=== PATIENT | female | born 1950 | race Caucasian/White ===

== ENCOUNTER 2022-02-23 17:54 | Inpatient (IN) | payer OTHER ==
[~2022-02-23] VITALS: Ht 170.2 cm; Wt 66.4 kg
[2022-02-23] MEDS ORDERED: methylPREDNISolone SOD SUCC 125 MG/2 ML VL IV ONE (18:30)
[2022-02-23] MEDS ORDERED: ALBUTEROL SULF 2.5 MG/0.5ML(0.5%) NEB SOLN HHN ONE (19:00)
[2022-02-23] MEDS ORDERED: IPRATROPIUM BROM 0.5 MG/2.5ML INH SOL HHN ONE (19:00)
[2022-02-23 19:10] LABS: Basophils # (auto) 0 10 ^3/uL (0-0.2); Eosinophils # (auto) 0 10 ^3/uL (0-0.8); Monocytes # (auto) 0.5 10 ^3/uL (0-1.3)
[2022-02-23 19:14] LABS: Basophils % (auto) 0.3 % (0.0-2.0); Eosinophils % (auto) 0.8 % (0.0-7.0); Hematocrit 50.9 % (36.0-46.0); Hemoglobin 16.7 g/dL (12.2-16.2); Lymphocytes # (auto) 0.8 10 ^3/uL (0.4-5.4); Lymphocytes % (auto) 17.5 % (10.0-50.0); Mean Corpuscular Hemoglobin 37.2 pg (28.0-32.0); Mean Corpuscular Hgb Conc. 32.9 g/dL (32.0-36.0); Neutrophils % (auto) 69.4 % (37.0-80.0); Nucleated Red Blood Cells % 0.2 %; Red Cell Distribution Width 17.5 % (11.8-14.3); White Blood Cell 4.4 10^3/uL (4.4-10.8)
[2022-02-23 19:25] LABS: Albumin 3.7 g/dL (3.4-5.0); BUN/Creatinine Ratio 42.2; Calcium 8.7 mg/dL (8.5-10.1); Magnesium 2.3 mg/dL (1.6-2.6); Potassium 4.4 mmol/L (3.5-5.1)
[2022-02-23 19:27] LABS: Bilirubin, Total 0.9 mg/dL (0.2-1.0); Total Protein 7.1 g/dL (6.4-8.2)
[2022-02-23 19:30] LABS: Lactic Acid w/Reflex 2.7 mmol/L (0.4-2.0)
[2022-02-23] MEDS ORDERED: cefTRIAXone 1GM/50ML D5W 50 ML IV ONE (19:45)
[2022-02-23] MEDS ORDERED: AZITHROMYCIN 500MG/ 250ML 250 ML IV ONE (19:45)
[2022-02-23] MEDS ORDERED: OXYCODONE W/ ACETAMINOPHEN 5/325MG TABLET PO ONE (21:15)
[2022-02-23] MEDS ORDERED: IOHEXOL 350 MG/ML 100ML IJ ONE (22:20)
[2022-02-24] MEDS ORDERED: ACETAMINOPHEN 325 MG TAB PO PRN (00:45)
[2022-02-24 01:33] VITALS: BP 188/111
[2022-02-24] MEDS: ONDANSETRON HCL 4 MG/2 ML VIAL IV PRN (02:11)
[2022-02-24] MEDS: MORPHINE SULFATE INJ 2 MG/ml SYRG IV PRN ×3 (02:12→23:00)
[2022-02-24] MEDS: IPRATROPIUM BROM 0.5 MG/2.5ML INH SOL NEB SCH ×4 (05:27→23:02)
[2022-02-24] MEDS: methylPREDNISolone SOD SUCC 40 MG/ML VL IV SCH ×3 (06:28→22:08)
[2022-02-24] MEDS: ASPirin-EC 81 mg tab PO SCH (10:00)
[2022-02-24] MEDS: FAMOTIDINE 20 MG TAB PO SCH (10:00)
[2022-02-24] MEDS: FUROSEMIDE 40 MG/4 ML VIAL IV SCH ×2 (10:00→22:09)
[2022-02-24 13:00] VITALS: BP 147/93
[2022-02-24 13:20] VITALS: BP 141/84
[2022-02-24] MEDS ORDERED: OXYC325T14 PO (13:21)
[2022-02-24] MEDS ORDERED: FAMO-12 PO (13:21)
[2022-02-24] MEDS ORDERED: ALBU2TAB4 INH (13:21)
[2022-02-24] MEDS ORDERED: TRI05TP TOP (13:21)
[2022-02-24] MEDS ORDERED: SPIR25TA8 PO (13:21)
[2022-02-24] MEDS ORDERED: PANT1INJ3 PO (13:21)
[2022-02-24] MEDS ORDERED: TIOT17SP IN (13:22)
[2022-02-24] MEDS: HYDROcodone-ACET 5/325MG TAB PO PRN (14:44)
[2022-02-24 17:01] VITALS: BP 131/97
[2022-02-24] MEDS: ENOXAPARIN SOD 40 MG/0.4 ML SYRINGE SC SCH (17:40)
[2022-02-24 22:00] VITALS: BP 123/89
[2022-02-24] MEDS ORDERED: AZITHROMYCIN 500MG/ 250ML 250 ML IV SCH (22:00)
[2022-02-24] MEDS: cefTRIAXone 1GM/50ML D5W 50 ML IV SCH (22:07)
[2022-02-24] MEDS: ATORVASTATIN 20 MG TAB PO SCH (22:10)
[2022-02-25] MEDS: HYDROcodone-ACET 5/325MG TAB PO PRN ×2 (04:56→09:52)
[2022-02-25 05:00] VITALS: BP 143/83
[2022-02-25 05:26] LABS: Basophils # (auto) 0 10 ^3/uL (0-0.2); Basophils % (auto) 0.1 % (0.0-2.0); Eosinophils # (auto) 0 10 ^3/uL (0-0.8); Hematocrit 48.6 % (36.0-46.0); Lymphocytes # (auto) 0.3 10 ^3/uL (0.4-5.4); Monocytes # (auto) 0.3 10 ^3/uL (0-1.3); Nucleated Red Blood Cells % 0.1 %
[2022-02-25 05:28] LABS: Hemoglobin 16.1 g/dL (12.2-16.2); Lymphocytes % (auto) 7.2 % (10.0-50.0); Mean Corpuscular Hemoglobin 37.9 pg (28.0-32.0); Mean Corpuscular Hgb Conc. 33.1 g/dL (32.0-36.0); Mean Corpuscular Volume 114.2 fL (80.0-100.0); Monocytes % (auto) 8.2 % (0.0-12.0); Neutrophils # (auto) 2.9 10 ^3/uL (1.6-8.6); Neutrophils % (auto) 84.5 % (37.0-80.0); Red Blood Cells 4.26 10^6/uL (4.0-5.20); Red Cell Distribution Width 17.3 % (11.8-14.3); White Blood Cell 3.4 10^3/uL (4.4-10.8)
[2022-02-25] MEDS: methylPREDNISolone SOD SUCC 40 MG/ML VL IV SCH ×3 (05:44→22:09)
[2022-02-25 06:01] LABS: Calcium 8.9 mg/dL (8.5-10.1); Potassium 3.3 mmol/L (3.5-5.1)
[2022-02-25 06:07] LABS: BUN/Creatinine Ratio 56.3
[2022-02-25] MEDS: IPRATROPIUM BROM 0.5 MG/2.5ML INH SOL NEB SCH ×4 (07:11→22:16)
[2022-02-25 08:11] VITALS: BP 149/87
[2022-02-25] MEDS: ASPirin-EC 81 mg tab PO SCH (09:42)
[2022-02-25] MEDS: FAMOTIDINE 20 MG TAB PO SCH (09:42)
[2022-02-25] MEDS: ENOXAPARIN SOD 40 MG/0.4 ML SYRINGE SC SCH (09:42)
[2022-02-25] MEDS ORDERED: FUROSEMIDE 40 MG TAB PO SCH ×2 (10:00→18:00)
[2022-02-25 11:40] VITALS: BP 155/94
[2022-02-25] MEDS: Ensure HIGH Protein Chocolate 8oz Bottle PO SCH ×2 (12:00→17:52)
[2022-02-25] MEDS: OXYCODONE W/ ACETAMINOPHEN 5/325MG TABLET PO PRN ×2 (13:36→17:56)
[2022-02-25 17:00] VITALS: BP 152/81
[2022-02-25] MEDS: FUROSEMIDE 40 MG TAB PO SCH (17:57)
[2022-02-25] MEDS: ALBUTEROL SULF 2.5 MG/0.5ML(0.5%) NEB SOLN NEB SCH ×2 (18:51→22:15)
[2022-02-25] MEDS: BUDESONIDE (INHALATION) 0.5 MG/2 ML NEB NEB SCH (18:51)
[2022-02-25 22:00] VITALS: BP 126/69
[2022-02-25] MEDS ORDERED: POTASSIUM CHL 20 Meq TABLET PO ONE (22:00)
[2022-02-25] MEDS: cefTRIAXone 1GM/50ML D5W 50 ML IV SCH (22:09)
[2022-02-25] MEDS: ATORVASTATIN 20 MG TAB PO SCH (22:09)
[2022-02-25] MEDS: AZITHROMYCIN 250 MG TAB PO SCH (22:12)
[2022-02-26] VITALS (7 sets, daily range): BP systolic 130–144; BP diastolic 74–89
[2022-02-26] MEDS: OXYCODONE W/ ACETAMINOPHEN 5/325MG TABLET PO PRN ×3 (00:25→17:48)
[2022-02-26] MEDS: IPRATROPIUM BROM 0.5 MG/2.5ML INH SOL NEB SCH ×6 (01:56→22:34)
[2022-02-26] MEDS: ALBUTEROL SULF 2.5 MG/0.5ML(0.5%) NEB SOLN NEB SCH ×6 (01:56→22:34)
[2022-02-26] MEDS: methylPREDNISolone SOD SUCC 40 MG/ML VL IV SCH ×3 (05:41→21:16)
[2022-02-26] MEDS: FUROSEMIDE 40 MG TAB PO SCH ×2 (05:42→17:38)
[2022-02-26] MEDS: BUDESONIDE (INHALATION) 0.5 MG/2 ML NEB NEB SCH ×2 (06:52→22:35)
[2022-02-26 07:06] LABS: Potassium 3.6 mmol/L (3.5-5.1)
[2022-02-26 07:08] LABS: BUN/Creatinine Ratio 58.8
[2022-02-26 07:09] LABS: Basophils # (auto) 0 10 ^3/uL (0-0.2); Eosinophils # (auto) 0 10 ^3/uL (0-0.8); Lymphocytes # (auto) 0.2 10 ^3/uL (0.4-5.4); Mean Corpuscular Hgb Conc. 34.7 g/dL (32.0-36.0); Red Blood Cells 4.23 10^6/uL (4.0-5.20)
[2022-02-26 07:12] LABS: Hematocrit 47.7 % (36.0-46.0); Hemoglobin 16.5 g/dL (12.2-16.2); Lymphocytes % (auto) 5.1 % (10.0-50.0); Mean Corpuscular Hemoglobin 39.1 pg (28.0-32.0); Mean Corpuscular Volume 112.6 fL (80.0-100.0); Monocytes # (auto) 0.4 10 ^3/uL (0-1.3); Monocytes % (auto) 8.8 % (0.0-12.0); Neutrophils # (auto) 3.5 10 ^3/uL (1.6-8.6); Neutrophils % (auto) 86.1 % (37.0-80.0); Nucleated Red Blood Cells % 0.4 %; Red Cell Distribution Width 16.6 % (11.8-14.3)
[2022-02-26] MEDS: Ensure HIGH Protein Chocolate 8oz Bottle PO SCH ×3 (08:50→18:03)
[2022-02-26 09:36] LABS: Folate (Folic Acid) 10.38 ng/mL (5.38-24)
[2022-02-26] MEDS: PANTOPRAZOLE 40 MG TAB PO SCH (09:59)
[2022-02-26] MEDS: ASPirin-EC 81 mg tab PO SCH (09:59)
[2022-02-26] MEDS: ALPRAZolam 0.25 MG TAB PO PRN ×2 (09:59→21:36)
[2022-02-26] MEDS: AZITHROMYCIN 250 MG TAB PO SCH (09:59)
[2022-02-26] MEDS: ENOXAPARIN SOD 40 MG/0.4 ML SYRINGE SC SCH (10:00)
[2022-02-26] MEDS: cefTRIAXone 1GM/50ML D5W 50 ML IV SCH (21:10)
[2022-02-26] MEDS: ATORVASTATIN 20 MG TAB PO SCH (21:10)
[2022-02-27] MEDS: ALBUTEROL SULF 2.5 MG/0.5ML(0.5%) NEB SOLN NEB SCH ×6 (01:56→22:22)
[2022-02-27] MEDS: IPRATROPIUM BROM 0.5 MG/2.5ML INH SOL NEB SCH ×6 (01:56→22:22)
[2022-02-27] MEDS: OXYCODONE W/ ACETAMINOPHEN 5/325MG TABLET PO PRN ×4 (02:18→20:07)
[2022-02-27 05:00] VITALS: BP 140/90
[2022-02-27 05:05] LABS: Basophils # (auto) 0 10 ^3/uL (0-0.2); Basophils % (auto) 0.2 % (0.0-2.0); Eosinophils # (auto) 0 10 ^3/uL (0-0.8); Lymphocytes # (auto) 0.2 10 ^3/uL (0.4-5.4); Monocytes # (auto) 0.3 10 ^3/uL (0-1.3); Neutrophils # (auto) 2.7 10 ^3/uL (1.6-8.6); Nucleated Red Blood Cells % 0.1 %; Red Cell Distribution Width 16.8 % (11.8-14.3); White Blood Cell 3.2 10^3/uL (4.4-10.8)
[2022-02-27 05:07] LABS: Hemoglobin 16.6 g/dL (12.2-16.2); Lymphocytes % (auto) 4.9 % (10.0-50.0); Mean Corpuscular Hemoglobin 37.4 pg (28.0-32.0); Mean Corpuscular Hgb Conc. 33.1 g/dL (32.0-36.0); Monocytes % (auto) 9.9 % (0.0-12.0); Red Blood Cells 4.42 10^6/uL (4.0-5.20)
[2022-02-27 05:26] LABS: BUN/Creatinine Ratio 53.6; Calcium 9.1 mg/dL (8.5-10.1); Potassium 3.1 mmol/L (3.5-5.1)
[2022-02-27] MEDS: methylPREDNISolone SOD SUCC 40 MG/ML VL IV SCH ×3 (05:29→21:03)
[2022-02-27] MEDS: FUROSEMIDE 40 MG TAB PO SCH ×2 (05:30→17:42)
[2022-02-27] MEDS: BUDESONIDE (INHALATION) 0.5 MG/2 ML NEB NEB SCH ×2 (05:58→22:22)
[2022-02-27] MEDS ORDERED: POTASSIUM CHL 20 Meq TABLET PO ONE (07:00)
[2022-02-27] MEDS: ENOXAPARIN SOD 40 MG/0.4 ML SYRINGE SC SCH (07:55)
[2022-02-27] MEDS: AZITHROMYCIN 250 MG TAB PO SCH (07:56)
[2022-02-27] MEDS: PANTOPRAZOLE 40 MG TAB PO SCH (07:56)
[2022-02-27] MEDS: ASPirin-EC 81 mg tab PO SCH (07:56)
[2022-02-27 09:00] VITALS: BP 155/93
[2022-02-27] MEDS: Ensure HIGH Protein Chocolate 8oz Bottle PO SCH ×3 (09:44→18:18)
[2022-02-27] MEDS: ALPRAZolam 0.25 MG TAB PO PRN (12:10)
[2022-02-27 13:00] VITALS: BP 141/93
[2022-02-27] MEDS: cefTRIAXone 1GM/50ML D5W 50 ML IV SCH (21:02)
[2022-02-27] MEDS: ATORVASTATIN 20 MG TAB PO SCH (21:03)
[2022-02-27 21:51] VITALS: BP 137/75
[2022-02-28] MEDS: IPRATROPIUM BROM 0.5 MG/2.5ML INH SOL NEB SCH ×7 (01:58→21:55)
[2022-02-28] MEDS: ALBUTEROL SULF 2.5 MG/0.5ML(0.5%) NEB SOLN NEB SCH ×7 (01:59→21:55)
[2022-02-28] MEDS: OXYCODONE W/ ACETAMINOPHEN 5/325MG TABLET PO PRN ×2 (02:08→20:51)
[2022-02-28] MEDS: methylPREDNISolone SOD SUCC 40 MG/ML VL IV SCH ×3 (05:14→20:48)
[2022-02-28] MEDS: FUROSEMIDE 40 MG TAB PO SCH ×2 (05:15→17:32)
[2022-02-28 05:32] VITALS: BP 133/88
[2022-02-28] MEDS ORDERED: IOHEXOL 350 MG/ML 100ML IJ ONE ×2 (07:25→09:16)
[2022-02-28] MEDS: Ensure HIGH Protein Chocolate 8oz Bottle PO SCH ×3 (08:00→17:32)
[2022-02-28] MEDS: PANTOPRAZOLE 40 MG TAB PO SCH (08:53)
[2022-02-28] MEDS: ASPirin-EC 81 mg tab PO SCH (08:53)
[2022-02-28] MEDS: ENOXAPARIN SOD 40 MG/0.4 ML SYRINGE SC SCH (08:59)
[2022-02-28 09:00] VITALS: BP 146/96
[2022-02-28] MEDS: APIXABAN 5 MG TAB PO SCH ×2 (10:16→20:49)
[2022-02-28] MEDS: BUDESONIDE (INHALATION) 0.5 MG/2 ML NEB NEB SCH ×2 (10:34→18:48)
[2022-02-28] MEDS: ALPRAZolam 0.25 MG TAB PO PRN (11:31)
[2022-02-28 13:00] VITALS: BP 144/92
[2022-02-28 16:40] VITALS: BP 143/72
[2022-02-28] MEDS: cefTRIAXone 1GM/50ML D5W 50 ML IV SCH (20:48)
[2022-02-28] MEDS: CYCLOBENZAPRINE HCL 10 MG TAB PO SCH (20:49)
[2022-02-28] MEDS: ATORVASTATIN 20 MG TAB PO SCH (20:50)
[2022-02-28 22:00] VITALS: BP 106/63
[2022-03-01] MEDS: ALBUTEROL SULF 2.5 MG/0.5ML(0.5%) NEB SOLN NEB SCH ×6 (01:51→22:46)
[2022-03-01] MEDS: IPRATROPIUM BROM 0.5 MG/2.5ML INH SOL NEB SCH ×6 (01:51→22:46)
[2022-03-01] MEDS: OXYCODONE W/ ACETAMINOPHEN 5/325MG TABLET PO PRN ×4 (02:03→20:47)
[2022-03-01 05:00] VITALS: BP 113/73
[2022-03-01 05:27] LABS: Basophils # (auto) 0 10 ^3/uL (0-0.2); Eosinophils # (auto) 0 10 ^3/uL (0-0.8); Eosinophils % (auto) 0.1 % (0.0-7.0); Hemoglobin 16.5 g/dL (12.2-16.2); Lymphocytes # (auto) 0.4 10 ^3/uL (0.4-5.4); Mean Corpuscular Hgb Conc. 34.7 g/dL (32.0-36.0); Neutrophils # (auto) 4.3 10 ^3/uL (1.6-8.6); White Blood Cell 5.5 10^3/uL (4.4-10.8)
[2022-03-01 05:29] LABS: Hematocrit 47.6 % (36.0-46.0); Lymphocytes % (auto) 7.6 % (10.0-50.0); Mean Corpuscular Hemoglobin 38.8 pg (28.0-32.0); Mean Corpuscular Volume 111.9 fL (80.0-100.0); Monocytes # (auto) 0.8 10 ^3/uL (0-1.3); Monocytes % (auto) 14.7 % (0.0-12.0); Neutrophils % (auto) 77.6 % (37.0-80.0); Nucleated Red Blood Cells % 0.2 %; Red Blood Cells 4.25 10^6/uL (4.0-5.20); Red Cell Distribution Width 16.3 % (11.8-14.3)
[2022-03-01 05:50] LABS: BUN/Creatinine Ratio 68.2; Calcium 8.9 mg/dL (8.5-10.1); Magnesium 2.1 mg/dL (1.6-2.6)
[2022-03-01] MEDS: FUROSEMIDE 40 MG TAB PO SCH ×2 (06:28→18:08)
[2022-03-01] MEDS: methylPREDNISolone SOD SUCC 40 MG/ML VL IV SCH ×3 (06:28→20:45)
[2022-03-01] MEDS: Ensure HIGH Protein Chocolate 8oz Bottle PO SCH ×3 (08:00→18:08)
[2022-03-01 09:00] VITALS: BP 115/65
[2022-03-01] MEDS: PANTOPRAZOLE 40 MG TAB PO SCH (09:46)
[2022-03-01] MEDS: APIXABAN 5 MG TAB PO SCH ×2 (09:46→20:45)
[2022-03-01] MEDS: ASPirin-EC 81 mg tab PO SCH (09:46)
[2022-03-01] MEDS: BUDESONIDE (INHALATION) 0.5 MG/2 ML NEB NEB SCH ×2 (09:47→18:10)
[2022-03-01] MEDS ORDERED: POTASSIUM CHL 20 Meq TABLET PO ONE (10:30)
[2022-03-01 13:00] VITALS: BP 126/80
[2022-03-01 17:00] VITALS: BP 116/75
[2022-03-01 18:15] VITALS: BP 116/75
[2022-03-01] MEDS: cefTRIAXone 1GM/50ML D5W 50 ML IV SCH (20:45)
[2022-03-01] MEDS: POTASSIUM CHL 20 Meq TABLET PO SCH (20:46)
[2022-03-01] MEDS: ATORVASTATIN 20 MG TAB PO SCH (20:46)
[2022-03-01] MEDS: CYCLOBENZAPRINE HCL 10 MG TAB PO SCH (20:46)
[2022-03-01 22:00] VITALS: BP 124/78
[2022-03-02] MEDS: IPRATROPIUM BROM 0.5 MG/2.5ML INH SOL NEB SCH ×5 (02:22→19:53)
[2022-03-02] MEDS: ALBUTEROL SULF 2.5 MG/0.5ML(0.5%) NEB SOLN NEB SCH ×5 (02:22→19:53)
[2022-03-02] MEDS: OXYCODONE W/ ACETAMINOPHEN 5/325MG TABLET PO PRN ×3 (03:20→18:16)
[2022-03-02 05:00] VITALS: BP 136/67
[2022-03-02 05:19] LABS: BUN/Creatinine Ratio 62.3; Calcium 8.6 mg/dL (8.5-10.1); Potassium 3.9 mmol/L (3.5-5.1)
[2022-03-02] MEDS: methylPREDNISolone SOD SUCC 40 MG/ML VL IV SCH ×3 (06:10→21:44)
[2022-03-02] MEDS: FUROSEMIDE 40 MG TAB PO SCH (06:11)
[2022-03-02] MEDS: BUDESONIDE (INHALATION) 0.5 MG/2 ML NEB NEB SCH ×2 (07:15→19:53)
[2022-03-02] MEDS: Ensure HIGH Protein Chocolate 8oz Bottle PO SCH ×3 (08:04→18:00)
[2022-03-02 08:46] VITALS: BP 107/68
[2022-03-02] MEDS: POTASSIUM CHL 20 Meq TABLET PO SCH (09:26)
[2022-03-02] MEDS: ASPirin-EC 81 mg tab PO SCH (09:26)
[2022-03-02] MEDS: APIXABAN 5 MG TAB PO SCH ×2 (09:26→21:45)
[2022-03-02] MEDS: PANTOPRAZOLE 40 MG TAB PO SCH (09:27)
[2022-03-02] MEDS: ALPRAZolam 0.25 MG TAB PO PRN (14:06)
[2022-03-02 17:15] VITALS: BP 126/67
[2022-03-02] MEDS: cefTRIAXone 1GM/50ML D5W 50 ML IV SCH (21:44)
[2022-03-02] MEDS: CYCLOBENZAPRINE HCL 10 MG TAB PO SCH (21:45)
[2022-03-02] MEDS: ATORVASTATIN 20 MG TAB PO SCH (21:45)
[2022-03-02 22:00] VITALS: BP 136/64
[2022-03-03] MEDS: ALPRAZolam 0.25 MG TAB PO PRN
[2022-03-03] MEDS: OXYCODONE W/ ACETAMINOPHEN 5/325MG TABLET PO PRN ×4 (00:35→19:46)
[2022-03-03 05:00] VITALS: BP 106/69
[2022-03-03] MEDS: methylPREDNISolone SOD SUCC 40 MG/ML VL IV SCH ×3 (05:36→21:48)
[2022-03-03] MEDS: ALBUTEROL SULF 2.5 MG/0.5ML(0.5%) NEB SOLN NEB SCH ×3 (05:46→18:15)
[2022-03-03] MEDS: IPRATROPIUM BROM 0.5 MG/2.5ML INH SOL NEB SCH ×3 (05:46→18:15)
[2022-03-03] MEDS: BUDESONIDE (INHALATION) 0.5 MG/2 ML NEB NEB SCH (05:46)
[2022-03-03 07:30] VITALS: BP 136/67
[2022-03-03 09:00] VITALS: BP 110/69
[2022-03-03] MEDS: Ensure HIGH Protein Chocolate 8oz Bottle PO SCH ×3 (09:41→18:54)
[2022-03-03] MEDS: ASPirin-EC 81 mg tab PO SCH (09:41)
[2022-03-03] MEDS: APIXABAN 5 MG TAB PO SCH ×2 (09:42→21:48)
[2022-03-03] MEDS: POTASSIUM CHL 20 Meq TABLET PO SCH (09:43)
[2022-03-03] MEDS: FUROSEMIDE 40 MG TAB PO SCH (09:43)
[2022-03-03] MEDS: PANTOPRAZOLE 40 MG TAB PO SCH (09:44)
[2022-03-03 13:00] VITALS: BP 121/77
[2022-03-03 17:24] VITALS: BP 111/86
[2022-03-03] MEDS: cefTRIAXone 1GM/50ML D5W 50 ML IV SCH (21:47)
[2022-03-03] MEDS: CYCLOBENZAPRINE HCL 10 MG TAB PO SCH (21:48)
[2022-03-03] MEDS: ATORVASTATIN 20 MG TAB PO SCH (21:48)
[2022-03-03 22:00] VITALS: BP 109/63
[2022-03-04] VITALS (8 sets, daily range): BP systolic 94–118; BP diastolic 53–67
[2022-03-04] MEDS: OXYCODONE W/ ACETAMINOPHEN 5/325MG TABLET PO PRN ×2 (04:22→09:17)
[2022-03-04] MEDS: methylPREDNISolone SOD SUCC 40 MG/ML VL IV SCH ×3 (05:45→21:53)
[2022-03-04] MEDS: ALBUTEROL SULF 2.5 MG/0.5ML(0.5%) NEB SOLN NEB SCH ×3 (06:05→19:05)
[2022-03-04] MEDS: IPRATROPIUM BROM 0.5 MG/2.5ML INH SOL NEB SCH ×3 (06:05→19:05)
[2022-03-04] MEDS: BUDESONIDE (INHALATION) 0.5 MG/2 ML NEB NEB SCH ×2 (06:05→19:05)
[2022-03-04] MEDS: Ensure HIGH Protein Chocolate 8oz Bottle PO SCH ×3 (09:29→18:37)
[2022-03-04] MEDS: POTASSIUM CHL 20 Meq TABLET PO SCH (09:30)
[2022-03-04] MEDS: APIXABAN 5 MG TAB PO SCH ×2 (09:30→21:52)
[2022-03-04] MEDS: ASPirin-EC 81 mg tab PO SCH (09:30)
[2022-03-04] MEDS: PANTOPRAZOLE 40 MG TAB PO SCH (09:31)
[2022-03-04] MEDS: FUROSEMIDE 40 MG TAB PO SCH (09:31)
[2022-03-04] MEDS: cefTRIAXone 1GM/50ML D5W 50 ML IV SCH (21:52)
[2022-03-04] MEDS: ATORVASTATIN 20 MG TAB PO SCH (21:53)
[2022-03-04] MEDS: CYCLOBENZAPRINE HCL 10 MG TAB PO SCH (21:53)
[2022-03-04] MEDS: ALPRAZolam 0.25 MG TAB PO PRN (22:11)
[2022-03-05] MEDS: OXYCODONE W/ ACETAMINOPHEN 5/325MG TABLET PO PRN ×3 (03:21→22:09)
[2022-03-05 05:00] VITALS: BP 112/75
[2022-03-05] MEDS: methylPREDNISolone SOD SUCC 40 MG/ML VL IV SCH ×3 (06:04→21:57)
[2022-03-05] MEDS: ALBUTEROL SULF 2.5 MG/0.5ML(0.5%) NEB SOLN NEB SCH ×3 (06:24→18:47)
[2022-03-05] MEDS: IPRATROPIUM BROM 0.5 MG/2.5ML INH SOL NEB SCH ×3 (06:25→18:47)
[2022-03-05] MEDS: BUDESONIDE (INHALATION) 0.5 MG/2 ML NEB NEB SCH ×2 (06:25→18:48)
[2022-03-05] MEDS: Ensure HIGH Protein Chocolate 8oz Bottle PO SCH ×3 (08:46→17:43)
[2022-03-05] MEDS: ASPirin-EC 81 mg tab PO SCH (08:47)
[2022-03-05] MEDS: POTASSIUM CHL 20 Meq TABLET PO SCH (08:47)
[2022-03-05] MEDS: PANTOPRAZOLE 40 MG TAB PO SCH (08:47)
[2022-03-05] MEDS: APIXABAN 5 MG TAB PO SCH ×2 (08:47→21:57)
[2022-03-05] MEDS: FUROSEMIDE 40 MG TAB PO SCH (08:47)
[2022-03-05 08:51] VITALS: BP 103/51
[2022-03-05 13:10] VITALS: BP 111/69
[2022-03-05] MEDS ORDERED: LACTULOSE 20Gm/30ML SOLN PO PRN (15:45)
[2022-03-05] MEDS ORDERED: LACTULOSE 20Gm/30ML SOLN PO ONE (15:45)
[2022-03-05 17:04] VITALS: BP 104/57
[2022-03-05] MEDS: CYCLOBENZAPRINE HCL 10 MG TAB PO SCH (21:58)
[2022-03-05] MEDS: ATORVASTATIN 20 MG TAB PO SCH (21:58)
[2022-03-05 22:00] VITALS: BP 118/58
[2022-03-06 05:00] VITALS: BP 113/65
[2022-03-06] MEDS: methylPREDNISolone SOD SUCC 40 MG/ML VL IV SCH ×3 (05:12→21:57)
[2022-03-06] MEDS: OXYCODONE W/ ACETAMINOPHEN 5/325MG TABLET PO PRN ×3 (05:13→21:59)
[2022-03-06] MEDS: IPRATROPIUM BROM 0.5 MG/2.5ML INH SOL NEB SCH ×3 (06:05→19:30)
[2022-03-06] MEDS: ALBUTEROL SULF 2.5 MG/0.5ML(0.5%) NEB SOLN NEB SCH ×3 (06:05→19:30)
[2022-03-06] MEDS: BUDESONIDE (INHALATION) 0.5 MG/2 ML NEB NEB SCH ×2 (06:05→19:30)
[2022-03-06 09:45] VITALS: BP 108/60
[2022-03-06] MEDS: ASPirin-EC 81 mg tab PO SCH (11:18)
[2022-03-06] MEDS: PANTOPRAZOLE 40 MG TAB PO SCH (11:18)
[2022-03-06] MEDS: APIXABAN 5 MG TAB PO SCH ×2 (11:18→21:57)
[2022-03-06] MEDS: FUROSEMIDE 40 MG TAB PO SCH (11:19)
[2022-03-06] MEDS: POTASSIUM CHL 20 Meq TABLET PO SCH (11:19)
[2022-03-06] MEDS: Ensure HIGH Protein Chocolate 8oz Bottle PO SCH ×3 (11:20→18:00)
[2022-03-06 13:00] VITALS: BP 97/56
[2022-03-06 17:00] VITALS: BP 114/56
[2022-03-06] MEDS: CYCLOBENZAPRINE HCL 10 MG TAB PO SCH (21:58)
[2022-03-06] MEDS: ATORVASTATIN 20 MG TAB PO SCH (21:58)
[2022-03-06 22:00] VITALS: BP 131/52
[2022-03-07] MEDS: MORPHINE SULFATE INJ 2 MG/ml SYRG IV PRN ×2 (03:13→09:45)
[2022-03-07] MEDS: methylPREDNISolone SOD SUCC 40 MG/ML VL IV SCH ×3 (06:21→15:12)
[2022-03-07] MEDS: ALBUTEROL SULF 2.5 MG/0.5ML(0.5%) NEB SOLN NEB SCH ×3 (06:56→19:23)
[2022-03-07] MEDS: BUDESONIDE (INHALATION) 0.5 MG/2 ML NEB NEB SCH ×2 (06:56→19:23)
[2022-03-07] MEDS: IPRATROPIUM BROM 0.5 MG/2.5ML INH SOL NEB SCH ×3 (06:56→19:23)
[2022-03-07] MEDS: Ensure HIGH Protein Chocolate 8oz Bottle PO SCH ×3 (08:01→18:00)
[2022-03-07 09:00] VITALS: BP 100/54
[2022-03-07] MEDS: ASPirin-EC 81 mg tab PO SCH (09:26)
[2022-03-07] MEDS: APIXABAN 5 MG TAB PO SCH (09:26)
[2022-03-07] MEDS: PANTOPRAZOLE 40 MG TAB PO SCH (09:27)
[2022-03-07] MEDS: POTASSIUM CHL 20 Meq TABLET PO SCH (09:27)
[2022-03-07] MEDS: FUROSEMIDE 40 MG TAB PO SCH (09:29)
[2022-03-07 13:00] VITALS: BP 105/57
[2022-03-07 16:42] VITALS: BP 115/57
[2022-03-07] MEDS: ATORVASTATIN 20 MG TAB PO SCH (21:25)
[2022-03-07] MEDS: CYCLOBENZAPRINE HCL 10 MG TAB PO SCH (21:27)
[2022-03-07] MEDS: OXYCODONE W/ ACETAMINOPHEN 5/325MG TABLET PO PRN (21:37)
[2022-03-07 22:49] VITALS: BP 102/42
[2022-03-07 23:25] VITALS: BP 102/42
[2022-03-08] MEDS: MORPHINE SULFATE INJ 2 MG/ml SYRG IV PRN ×2 (03:22→23:03)
[2022-03-08] MEDS: ONDANSETRON HCL 4 MG/2 ML VIAL IV PRN ×2 (03:43→23:02)
[2022-03-08 05:23] VITALS: BP 98/46
[2022-03-08] MEDS: methylPREDNISolone SOD SUCC 40 MG/ML VL IV SCH ×2 (05:49→18:07)
[2022-03-08] MEDS: IPRATROPIUM BROM 0.5 MG/2.5ML INH SOL NEB SCH ×3 (05:58→19:33)
[2022-03-08] MEDS: BUDESONIDE (INHALATION) 0.5 MG/2 ML NEB NEB SCH ×2 (05:58→19:34)
[2022-03-08] MEDS: ALBUTEROL SULF 2.5 MG/0.5ML(0.5%) NEB SOLN NEB SCH ×3 (05:58→19:33)
[2022-03-08] MEDS: OXYCODONE W/ ACETAMINOPHEN 5/325MG TABLET PO PRN (07:22)
[2022-03-08] MEDS: Ensure HIGH Protein Chocolate 8oz Bottle PO SCH ×3 (07:59→18:07)
[2022-03-08 09:00] VITALS: BP 123/61
[2022-03-08] MEDS: FUROSEMIDE 40 MG TAB PO SCH (10:08)
[2022-03-08] MEDS: POTASSIUM CHL 20 Meq TABLET PO SCH (10:08)
[2022-03-08] MEDS: ASPirin-EC 81 mg tab PO SCH (10:08)
[2022-03-08] MEDS: PANTOPRAZOLE 40 MG TAB PO SCH (10:09)
[2022-03-08 13:00] VITALS: BP 121/63
[2022-03-08 17:00] VITALS: BP 115/59
[2022-03-08 22:00] VITALS: BP 114/56
[2022-03-08] MEDS: CYCLOBENZAPRINE HCL 10 MG TAB PO SCH (22:01)
[2022-03-08] MEDS: ATORVASTATIN 20 MG TAB PO SCH (22:01)
[2022-03-09] MEDS: OXYCODONE W/ ACETAMINOPHEN 5/325MG TABLET PO PRN ×3 (03:01→15:57)
[2022-03-09 05:00] VITALS: BP 109/61
[2022-03-09] MEDS: methylPREDNISolone SOD SUCC 40 MG/ML VL IV SCH (05:25)
[2022-03-09] MEDS: BUDESONIDE (INHALATION) 0.5 MG/2 ML NEB NEB SCH (07:31)
[2022-03-09] MEDS: Ensure HIGH Protein Chocolate 8oz Bottle PO SCH ×2 (08:34→12:33)
[2022-03-09 09:00] VITALS: BP 115/60
[2022-03-09] MEDS: ASPirin-EC 81 mg tab PO SCH (09:27)
[2022-03-09] MEDS: PANTOPRAZOLE 40 MG TAB PO SCH (09:28)
[2022-03-09] MEDS: POTASSIUM CHL 20 Meq TABLET PO SCH (09:28)
[2022-03-09] MEDS: FUROSEMIDE 40 MG TAB PO SCH (09:29)
[2022-03-09] MEDS: IPRATROPIUM BROM 0.5 MG/2.5ML INH SOL NEB SCH ×2 (12:02→12:05)
[2022-03-09] MEDS: ALBUTEROL SULF 2.5 MG/0.5ML(0.5%) NEB SOLN NEB SCH ×2 (12:02→12:05)
[2022-03-09 13:00] VITALS: BP 123/58
[2022-03-09] MEDS: ONDANSETRON HCL 4 MG/2 ML VIAL IV PRN (13:49)
[2022-03-09] MEDS: MORPHINE SULFATE INJ 2 MG/ml SYRG IV PRN (13:50)
[2022-03-09 14:55] VITALS: BP 115/60
== END 2022-03-09 16:20 | DRG 193 ==
LOC: ER 17:54 → TELE 02-24 00:28 → TELE-CENTR 02-24 12:05
PROVIDERS: ADMIT Nurse Practitioner Family; ATTEND Internal Medicine
PROC: 5A0935A Assistance with Respiratory Ventilation, Less than 24 Consecutive Hours, High Flow/Velocity Cannula (ICD-10-PCS; principal; 2022-03-01)
DX: J18.9 Pneumonia, unspecified organism (principal); G93.41 Metabolic encephalopathy; J96.21 Acute and chronic respiratory failure with hypoxia; J44.1 Chronic obstructive pulmonary disease with (acute) exacerbation; J98.11 Atelectasis; J44.0 Chronic obstructive pulmonary disease with (acute) lower respiratory infection; I82.432 Acute embolism and thrombosis of left popliteal vein; E87.8 Other disorders of electrolyte and fluid balance, not elsewhere classified; D53.9 Nutritional anemia, unspecified; M54.50 Low back pain, unspecified; G89.29 Other chronic pain; Z20.822 Contact with and (suspected) exposure to COVID-19; I11.0 Hypertensive heart disease with heart failure; I50.9 Heart failure, unspecified; Z72.0 Tobacco use; Z99.81 Dependence on supplemental oxygen; Z80.0 Family history of malignant neoplasm of digestive organs; Z83.2 Family history of diseases of the blood and blood-forming organs and certain disorders involving the immune mechanism; Z90.710 Acquired absence of both cervix and uterus; Z91.19 Patient's noncompliance with other medical treatment and regimen
CPT/HCPCS: 36415; 36600; 70450; 70460; 70491; 70551; 71045; 71275; 80048; 80053; 80061; 82550; 82607; 82746; 82805; 83036; 83605; 83735; 83880; 84443; 84484; 85025; 87040; 87081; 93005; 93306; 93970; 94640; 94644; 95819; 96365; 96368; 96375; 97110; 97116; 97163; 97530; 99291; G0378; J0696; J2405